=== PATIENT | female | born 1975 | race Two or more races ===

== ENCOUNTER 2025-06-13 06:21 | Day surgery (SDC) | payer BC, SELFPAY | END 2025-06-13 12:41 | disposition home or self-care (01) | LOC: GI 06:21 | PROVIDERS: ATTENDING PHYSICIAN Internal Medicine | DX: Z12.11 Encounter for screening for malignant neoplasm of colon (principal); R19.5 Other fecal abnormalities; K64.8 Other hemorrhoids; K57.30 Diverticulosis of large intestine without perforation or abscess without bleeding; D12.7 Benign neoplasm of rectosigmoid junction; K62.1 Rectal polyp | CPT/HCPCS: 45385; 45380; 88305 ==